=== PATIENT | male | born 1940 | race Caucasian/White ===

== ENCOUNTER 2017-07-29 09:33 | Emergency (ER) | payer OTHER ==
[2017-07-29 09:34] VITALS: BMI 24.3
[2017-07-29 09:38] VITALS: BP 138/78; PULSE 69; RESP 18; TEMP 97.5; O2SAT 100
[2017-07-29] MEDS ORDERED: Naproxen 550 mg Tab PO STA (10:03)
[2017-07-29] MEDS ORDERED: Lidocaine 5% Patch TD STA (10:03)
[2017-07-29] MEDS ORDERED: Naproxen 550 mg Tab PO ONE (10:07)
--- NOTE | 2017-07-29 10:07 | C.PDOC ---
History Of Present Illness 76 year old male presents to the ED with complaints of persistent left lower back pain for two months. Patient states he accidentally slipped and fell and struck stair steps. He states pain is intermittent and localized. Patient notes "I thought it would go away by now." Pain is worse with full weight bearing on the left leg but resolves "when I stand with my knee slightly bent." He has not taken any medications today and denies weakness, numbness, or dysuria. VIA TRANS PERSIST L LOWER BACK X 2 MONTHS. S/P ACCID SLIP AND FALL, STRUCK ON STAIR STEPS. PS PAIN IS INTERMIT, LOCALIZED. "I THOUGHT IT WOULD GO AWAY BY NOW". WORSE W FULL WT BEAR L LEG BUT RESOLVES "WHEN I STAND W MY KNEE SLIGHTLY BENT". NO WEAK, NUMB. NO MEDS TAKEN TODAY EXAM NONTOXIC BACK LIMITED FULL ROM DUE TO PAIN; +L LOWER SPASM W LOCAL TEND, REPRODUC PAIN. NO SPINAL TEND. 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 ) History/Exam Limitations: no limitations Onset/Duration Of Symptoms: Intermittent Episodes (2 months ) Current Symptoms Are (Timing): Still Present Quality Of Discomfort: "Pain" (localized pain ) Previous Symptoms: None Associated Symptoms: None Exacerbating Factor(s): Standing (weight bearing on left leg ) Recent travel outside of the [place]: No Past Medical History Reviewed: Historical Data, Nursing Documentation, Vital Signs Vital Signs: Last Vital Signs Temp 97.5 F L 07/29/17 09:37 Pulse 69 07/29/17 09:37 Resp 18 07/29/17 09:37 BP 138/78 07/29/17 09:37 Pulse Ox 100 07/29/17 10:17 - Medical History PMH: HTN, Hypercholesterolemia Family History: States: Unknown Family Hx - Social History Hx Tobacco Use: No Hx Alcohol Use: No Hx Substance Use: No - Immunization History Hx Tetanus Toxoid Vaccination: Yes Hx Influenza Vaccination: Yes Hx Pneumococcal Vaccination: No Review Of Systems Constitutional: Negative for: Fever, Chills Cardiovascular: Negative for: Chest Pain, Palpitations Respiratory: Negative for: Cough, Shortness of Breath Gastrointestinal: Negative for: Nausea, Vomiting, Abdominal Pain Genitourinary: Negative for: Dysuria Musculoskeletal: Positive for: Back Pain (left lower back pain ) Neurological: Negative for: Weakness, Numbness Physical Exam - Physical Exam Appears: Non-toxic, No Acute Distress Skin: Warm, Dry Head: Atraumatic Eye(s): bilateral: Normal Inspection Chest: Symmetrical, No Deformity Back: No Vertebral Tenderness (no spinal tenderness ), Decreased ROM (limited full ROM, due to pain. ), Muscle Spasm (left lower spasm with local tenderness and reproducable pain, ), Other (Atraumatic ) Extremity: Normal ROM, No Tenderness Neurological/Psych: Oriented x3, Normal Speech, Normal Cognition, Normal Motor, Normal Sensation Gait: Steady ED Course And Treatment O2 Sat by Pulse Oximetry: 100 (room air ) Pulse Ox Interpretation: Normal - Other Rad LS SPINE X-Ray: Interpreted by Me (ANDREEA NO ACUTE CHANGE) Progress Note: LS spine X-Ray was ordered and patient was given Tylenol, Lidoderm, Anaprox, and Flexeril. Disposition Counseled Patient/Family Regarding: Studies Performed, Diagnosis, Need For Followup, Rx Given - Disposition Referrals: [employer] [facility] [Outside] [facility] [Outside] [facility] [Other] Disposition: HOME/ ROUTINE Disposition Time: 10:17 Condition: IMPROVED Prescriptions: Acetaminophen [Tylenol Extra Strength] 2 tab PO Q6 #30 tablet Cyclobenzaprine [Flexeril] 10 mg PO TID #15 tab Lidocaine 5% [Lidoderm] 1 ea TD PRN PRN #10 patch PRN Reason: Pain, Moderate (4-7) Naproxen [Naprosyn] 1 tab PO BID PRN #25 tab PRN Reason: Pain Instructions: Chronic Back Pain (ED) Forms: [employer] ([place]) Print Language: HUNGARIAN - Clinical Impression Clinical Impression: Chronic back pain - Scribe Statement The provider has reviewed the documentation as recorded by the Scribe Vanessa Benson All medical record entries made by the Scribe were at my direction and personally dictated by me. I have reviewed the chart and agree that the record accurately reflects my personal performance of the history, physical exam, medical decision making, and the department course for this patient. I have also personally directed, reviewed, and agree with the discharge instructions and disposition.
[2017-07-29] MEDS ORDERED: Lidocaine 5% Patch TD ONE (10:15)
--- NOTE | 2017-07-29 10:37 | RAD ---
PROCEDURE: Radiographs of the Lumbar Spine. HISTORY: l lower back pain ho trauma 2 mo ago COMPARISON: None available. FINDINGS: Scoliosis. No listhesis. Multilevel degenerative changes including osteophyte formation and intervertebral disc space narrowing. No acute displaced fracture identified. IMPRESSION: Scoliosis. Multilevel degenerative changes including osteophyte formation and intervertebral disc space narrowing.
== END 2017-07-29 10:25 | disposition home or self-care (01) ==
LOC: C.ER 09:33
DX: G89.29 Other chronic pain (principal); M54.5 Low back pain

== ENCOUNTER 2018-10-26 08:22 | Day surgery (SDC) | payer MEDICARE, OTHER ==
[2018-10-26 09:17] VITALS: BMI 25.4
[2018-10-26] MEDS ORDERED: Propofol 10 mg/ml Inj (20 ML) ONE ×2 (10:22→10:35)
--- NOTE | 2018-10-26 10:22 | CP.SDSHP ---
Same Day Surgery H & P - History Proposed Procedure: endoscopy and biopsy, polypectomy Pre-Op Diagnosis: dysphagia, anemia, gastric polyp - Previous Medical/Surgical History Cardiac: Hypertension Misc: Anemia - Allergies Allergies: Allergies No Known Allergies Allergy (Verified 10/26/18 09:16) - Physical Exam Vital Signs: Vital Signs 10/26/18 09:47 Temperature 98 F Pulse Rate 60 Respiratory 19 Rate Blood Pressure 146/75 O2 Sat by Pulse 100 Oximetry Mental Status: Alert & Oriented x3 Neuro: WNL Heart: WNL Lungs: WNL GI: WNL - {Optional Preform as Required} Abdomen: WNL - Impression Impression: gastric polyp, gastritis Pt. Evaluated Today:Candidate for Anesthesia & Procedure: Yes - Date & Time Date: 10/26/18 Time: 10:05 Short Stay Discharge - Short Stay Discharge Admitting Diagnosis/Reason for Visit: GASTRITIS Disposition: HOME/ ROUTINE
[2018-10-26] MEDS ORDERED: Lactated Ringer's 500 ML IV ONE ×2 (10:24)
[2018-10-26 11:02] VITALS: PULSE 67; O2SAT 100
[2018-10-26 12:41] VITALS: BP 92/60; RESP 16; TEMP 97
== END 2018-10-26 11:45 | disposition home or self-care (01) ==
LOC: C.ENDO 08:22
PROVIDERS: ATTEND Internal Medicine Gastroenterology
DX: K29.00 Acute gastritis without bleeding (principal); R13.10 Dysphagia, unspecified; K31.7 Polyp of stomach and duodenum; K29.70 Gastritis, unspecified, without bleeding; I10 Essential (primary) hypertension; D64.9 Anemia, unspecified
CPT/HCPCS: 43251; 88305; J2704; J7120